=== PATIENT | female | born 1945 | race Caucasian/White ===

== ENCOUNTER → 2016-11-27 | Outpatient (CLI) | payer BC, OTHER ==
--- NOTE | ~2016-11-27 | CNG ---
[facility] [place] [address] CYTO-NONGYN REPORT PROCEDURE Name: HARIS PANDEY [facility] [id number] Admission: 11/27/16 Date of : 47 Discharge: Report #: [id number] Path Case #: [id number] CYTOPATHOLOGY REPORT COLLECTION DATE: 11/27/2016 RECEIVED DATE: 11/27/2016 SUBMITTING PHYS: Dr. Monae Ma OTHER PHYS: CLINICAL HISTORY: Right pleural effusion. SPECIMEN(S) RECEIVED: A.Pleural fluid, Right * * * * * * * * * * * * FINAL DIAGNOSIS: Right pleural fluid: No malignant epithelial cells identified. Reactive mesothelial cells, abundant macrophages, as well as chronic inflammation. COMMENT: Immunohistochemical stains are performed. (Cell block): BerEP4: non-reactive Calretinin: strongly reactive within the mesothelial cells Desmin: strongly reactive within the mesothelial cells, supporting reactive nature TTF-1: non-reactive ER: non-reactive CD68: strongly reactive within the background macrophages Co-review: Dr. Susan Foster. (IUV:csd; d/t: 11/29/2016) PATHOLOGIST: oJdie Rain M.D. REPORT ELECTRONICALLY SIGNED BY: Jodie Rain M.D. DATE/TIME: 11/29/2016 15:02 * * * * * * * * * * * * GROSS PATHOLOGY: A. Pleural fluid, Right: The specimen is submitted unfixed, labeled "Haris Pandey". Received by the Cytology Department is 15 mL of clear yellow fluid out of a total volume of 500 ml. One ThinPrep slide and a cell block were prepared. (clt 11.27.2016) FAMILY MEDICINE CHAIR(S): HALLIE Uriostegui(ASCP) INITIAL CPT CODE(S): [address] [address] CYTO-NONGYN REPORT PROCEDURE Name: HARIS PANDEY Room #: REG CLI Karen.#: [id number] Admission: 11/27/16 Date of : 47 Discharge: Report #: [id number] Path Case #: [id number] A; 82729, 23078, [id number], 08061, 56151, 11566, [id number], 48462 Professional services performed by [facility] at [address], [place] [address] [facility] at [address] [place] [address]., [address], [place] [address]. [address], [address] [place] [address] PHONE: [phone] DIRECTOR: Carlos Simons M.D. * * * END OF REPORT * * *
[2016-11-27 12:39] LABS: CALCIUM 9.2 mg/dL (8.5-10.1); CREATININE 0.8 mg/dL (0.6-1.3); POTASSIUM 4.3 mmol/L (3.5-5.1)
[2016-11-27 12:46] LABS: PROTIME 10.3 Seconds (9.3-11.4)
[2016-11-27 15:01] LABS: BF NUCLEATED CELLS 663; BF RBC 976
[2016-11-27 15:02] LABS: COLOR YELLOW; TOTAL VOLUME 60 mL
[2016-11-27 15:03] LABS: CLARITY SLIGHTLY CLOUDY; MANUAL DIFF YES
[2016-11-27 15:37] LABS: BF MACROPHAGE 41; BF NEUTROPHILS 29
[2016-11-28 10:08] LABS: BODY FLUID AMYLASE 29 U/L (()); BODY FLUID GLUCOSE 93 mg/dL (()); BODY FLUID LDH 188 IU/L (()); BODY FLUID PROTEIN 4.1 g/dL (())
== END | disposition home or self-care (01) ==
LOC: ULTRA 11:57
PROVIDERS: Internal Medicine
DX: J90 Pleural effusion, not elsewhere classified (principal)

== ENCOUNTER → 2016-12-11 | Outpatient (CLI) | payer BC, OTHER ==
--- NOTE | ~2016-12-11 | CNG ---
[facility] [place] [address] CYTO-NONGYN REPORT PROCEDURE Name: HARIS PANDEY Room #: REG [facility].#: [id number] Admission: 12/11/16 Date of : 47 Discharge: Report #: [id number] Path Case #: [id number] CYTOPATHOLOGY REPORT COLLECTION DATE: 12/11/2016 RECEIVED DATE: 12/11/2016 SUBMITTING PHYS: Dr. Merari Jhaveri OTHER PHYS: Dr. Monae Ma CLINICAL HISTORY: Pleural Effusion SPECIMEN(S) RECEIVED: A.Pleural fluid, Right * * * * * * * * * * * * FINAL DIAGNOSIS: Right pleural fluid, ultrasound-guided thoracentesis: ATYPICAL MESOTHELIAL CELLS IDENTIFIED. No definite malignant epithelial cells identified. COMMENT: Examination shows collections of gland-forming epithelioid clusters. Few cells show high nuclear to cytoplasmic ratio. There is not mucin present within any of the cells. There are no intranuclear inclusions identified. Multiple immunohistochemical stains are performed. (Cell block): Calretinin: reactive within most of the epithelioid clusters Desmin: non-reactive within several atypical appearing mesothelial cells WT-1: strong nuclear reactivity identified B72.3 (TAG 72): non-reactive BerEP4: non-reactive Based on the morphology as well as the immunohistochemical stains, the pleural fluid appears to be negative for malignant epithelial cells (with the non-reactive adenocarcinoma markers). The mesothelial cells; however, are atypical and the differential diagnosis includes a reactive process due to recurrent pleural effusions, or a neoplastic process. Please correlate with clinical and radiographic findings. Co-review: Dr. Susan Foster. The findings of this case are discussed with Dr. Gordon Jhaveri at 10:45 a.m., on 12/13/16. (IUV:csd; d/t: 12/13/2016) PATHOLOGIST: Jodie Rain M.D. REPORT ELECTRONICALLY SIGNED BY: Jodie Rain M.D. [address] [address] CYTO-NONGYN REPORT PROCEDURE Name: HARIS PANDEY [facility] [id number] Admission: 12/11/16 Date of : 47 Discharge: Report #: [id number] Path Case #: [id number] DATE/TIME: 12/13/2016 15:31 * * * * * * * * * * * * GROSS PATHOLOGY: A. Pleural fluid, Right: The specimen is submitted unfixed, labeled "Arnaud Haris R". Received by the Cytology Department is 15 mL of clear yellow fluid out of a total volume 400 ml. One ThinPrep slide and a cell block were prepared. (mm .) SUPERVISOR TRUST ACCOUNTS(S): HALLIE Uriostegui(ASCP) INITIAL CPT CODE(S): A; 36176, 06389, 09805, 89174, 36237, 54280, 18553 Professional services performed by [facility] at [facility] [address], [place] [address] Technical services performed by [facility] at [address] [place] [address], [address], [place] [address]. [facility], [address] [place] [address] PHONE: [phone] DIRECTOR: Carlos Simons M.D. * * * END OF REPORT * * *
[2016-12-11 14:41] LABS: BF NUCLEATED CELLS 790; BF RBC 1727
[2016-12-11 14:42] LABS: CLARITY HAZY; COLOR YELLOW; TOTAL VOLUME 60 mL
[2016-12-11 16:20] LABS: MANUAL DIFF YES
[2016-12-13 14:08] LABS: BODY FLUID ALBUMIN 2.9 g/dL (()); BODY FLUID AMYLASE 39 U/L (()); BODY FLUID GLUCOSE 88 mg/dL (()); BODY FLUID LDH 172 IU/L (()); BODY FLUID PROTEIN 4.1 g/dL (())
[2016-12-13 16:20] LABS: BF MACROPHAGE 84; BF NEUTROPHILS 11
== END | disposition home or self-care (01) ==
LOC: ULTRA 12:31
PROVIDERS: Internal Medicine Pulmonary Disease
DX: J90 Pleural effusion, not elsewhere classified (principal)

== ENCOUNTER → 2016-12-25 | Outpatient (CLI) | payer BC, OTHER | LOC: RAD 15:15 | DX: R06.00 Dyspnea, unspecified (principal); M41.84 Other forms of scoliosis, thoracic region ==

== ENCOUNTER → 2016-12-28 | Outpatient (CLI) | payer BC, OTHER ==
[2016-12-28 11:22] LABS: HEMATOCRIT 38.5 % (37.0-47.0); HEMOGLOBIN 13.1 gm/dL (12.0-15.0); MCH 29.9 pg (26.0-34.0); MCHC 33.9 g/dL (28.0-37.0); MCV 88.2 fL (80.0-100.0); RBC 4.37 mil/uL (4.20-5.00); RDW 13.5 % (10.5-14.5); WBC 6.1 thou/uL (4.0-11.0)
[2016-12-28 12:15] LABS: ALBUMIN 3.5 g/dL (3.4-5.0); CALCIUM 8.6 mg/dL (8.5-10.1); CREATININE 0.8 mg/dL (0.6-1.0); POTASSIUM 4.1 mmol/L (3.5-5.1); TOTAL BILIRUBIN 0.4 mg/dL (<0.1-1.0); TOTAL PROTEIN 6.7 g/dL (6.4-8.2)
== END ==
LOC: RAD 10:51
PROVIDERS: Internal Medicine Pulmonary Disease
DX: J90 Pleural effusion, not elsewhere classified (principal)

== ENCOUNTER → 2017-01-04 | Outpatient (CLI) | payer BC ==
--- NOTE | ~2017-01-04 | 2DMMODE ---
[facility] [place] [address] 2 D/M-MODE ECHOCARDIOGRAM Name: HARIS PANDEY Room #: REG [facility]#: [id number] Admission: 01/04/17 Attend Phys: Kevin Del Rio Discharge: Date of : 47 Date of Service: 01/04/17 1113 Report #: [id number] THIS REPORT FOR: //name// APPROVED REPORT Study performed: 01/04/2017 09:09:36 EXAM: Comprehensive 2D, Doppler, and color-flow Echocardiogram Patient Location: Out-Patient Blood Pressure: 120/70 mmHg HR: 74 bpm Rhythm: NSR Other Information Study Quality: Adequate Technically limited study due to breast implants. Indications Pulmonary Hypertension Hx: Recurring pleural effusions 2D Dimensions RVDd: 27.03 mm LVEF(%): 56.22 (>50%) IVSd: 10.84 (7-11mm) LVOT Diam: 19.80 (18-24mm) LVDd: 41.65 mm PWd: 8.45 (7-11mm) Ascending Ao: 33.10 (22-36mm) LVDs: 29.55 (25-40mm) Aortic Root: 32.03 mm Inman's LVEF: 56.22 % Volumes Left Atrial Volume (Systole) Single Plane 4CH: 29.26 mL Single Plane 2CH: 38.59 mL LA ESV Index: 20.00 mL/m2 LV Strain GL Strain(%): 0.00 Aortic Valve AoV Peak Abrahan.: 1.21 m/s AO Peak Gr.: 5.87 mmHg LVOT Max P.01 mmHg [facility] [address] [place] [address] 2 D/M-MODE ECHOCARDIOGRAM Name: JIMMYYUEHARIS Keila Room #: REG [facility]#: [id number] Admission: 01/04/17 Attend Phys: Kevin Del Rio Discharge: Date of : 47 Date of Service: 01/04/17 1113 Report #: [id number] LVOT Max V: 0.71 m/s AI Vmax: 5.04 m/s AI Bossier: 3.08 m/s2 AI PHT: 474.52 ms Mitral Valve E/A Ratio: 1.1 MV Decel. Time: 221.69 ms MV E Max Abrahan.: 0.66 m/s MV A Abrahan.: 0.58 m/s MV PHT: 64.29 ms Pulmonary Valve PV Peak Abrahan.: 0.60 m/s PV Peak Gr.: 1.46 mmHg Pulmonary Vein P Vein S: 72.2 m/s P Vein D: 51.0 m/s P Vein A Dur.: 30.9 m/s Tricuspid Valve TR Peak Abrahan.: 2.14 m/s RAP Estimate: 5.00 mmHg TR Peak Gr.: 18.29 mmHg RVSP: 23.00 mmHg Left Ventricle The left ventricle is normal size. There is normal LV segmental wall motion. There is normal left ventricular wall thickness. The left ventricular systolic function is normal. LVEF is 55-60%. Grade II - pseudonormal filling dynamics. Right Ventricle The right ventricle is normal size. The right ventricular systolic function is normal. Atria The left atrium size is normal. The right atrium size is normal. Aortic Valve The aortic valve is normal in structure. Mild aortic regurgitation. There is no aortic valvular stenosis. Mitral Valve The mitral valve is normal in structure. Mild mitral regurgitation. Tricuspid Valve [facility] [address] [place] [address] 2 D/M-MODE ECHOCARDIOGRAM Name: HARIS PANDEY Room #: REG [facility]#: [id number] Admission: 01/04/17 Attend Phys: Kevin De lRio Discharge: Date of : 47 Date of Service: 01/04/17 1113 Report #: [id number] The tricuspid valve is normal in structure. There is mild tricuspid regurgitation. The right atrial pressure is estimated at 5 mmHg. Estimated PAP is 23mmHg. Pulmonic Valve The pulmonary valve is normal in structure. There is no pulmonic valvular regurgitation. Great Vessels The aortic root is normal in size. The ascending aorta is normal in size. IVC is normal in size and collapses >50% with inspiration. Pericardium There is no pericardial effusion. Right pleural effusion noted. <Conclusion> The left ventricular systolic function is normal. There is normal LV segmental wall motion. LVEF is 55-60%. The aortic valve is normal in structure. Mild aortic regurgitation, no stenosis. The mitral valve is normal in structure. Mild mitral regurgitation. Pulmonary artery pressure of 25mmHg There is no pericardial effusion. <ELECTRONICALLY SIGNED> By: Timothy Gimenez MD, [facility] 01/04/17 1113 1113 111 Timothy Gimenez MD, FACC /INF
== END ==
LOC: CV 09:35
DX: I27.2 Other secondary pulmonary hypertension (principal); R91.8 Other nonspecific abnormal finding of lung field

== ENCOUNTER → 2017-01-14 | Outpatient (CLI) | payer BC, OTHER | LOC: RAD 10:50 | DX: J90 Pleural effusion, not elsewhere classified (principal) ==

== ENCOUNTER → 2017-02-27 | Outpatient (CLI) | payer BC, OTHER | LOC: RAD 15:54 | DX: J90 Pleural effusion, not elsewhere classified (principal) ==

== ENCOUNTER → 2017-03-04 | Outpatient (CLI) | payer BC, OTHER | LOC: RAD 16:26 | DX: J90 Pleural effusion, not elsewhere classified (principal) ==

== ENCOUNTER 2017-05-21 09:26 | Inpatient (IN) | payer BC, OTHER ==
[2017-05-20 10:11] LABS: URINE BILIRUBIN NEGATIVE (Negative); URINE BLOOD TRACE (Negative); URINE COLOR YELLOW; URINE GLUCOSE-RANDOM* NEGATIVE (Negative); URINE KETONES NEGATIVE (Negative); URINE NITRITE NEGATIVE (Negative); URINE PROTEIN (DIPSTICK) NEGATIVE (Negative); URINE SPECIFIC GRAVITY <= 1.005 (1.003-1.035); URINE UROBILINOGEN 0.2 E.U./dl (0.2-1.0)
[2017-05-20 10:13] LABS: HEMATOCRIT 39.1 % (37.0-47.0); HEMOGLOBIN 13.2 gm/dL (12.0-15.0); MCH 29.4 pg (26.0-34.0); MCHC 33.7 g/dL (28.0-37.0); MCV 87.1 fL (80.0-100.0); RBC 4.49 mil/uL (4.20-5.00); RDW 13.2 % (10.5-14.5); WBC 5.6 thou/uL (4.0-11.0)
[2017-05-20 10:26] LABS: APTT 31.5 Seconds (24.5-32.8); PROTIME 10.3 Seconds (9.3-11.4)
[2017-05-20 10:29] LABS: ALBUMIN 4.2 g/dL (3.4-5.0); CREATININE 0.8 mg/dL (0.6-1.0); POTASSIUM 4.2 mmol/L (3.5-5.1); TOTAL BILIRUBIN 0.7 mg/dL (<0.1-1.0); TOTAL PROTEIN 7.5 g/dL (6.4-8.2)
[~2017-05-21] VITALS: Ht 177.8 cm; Wt 72.6 kg
--- NOTE | ~2017-05-21 | S ---
[facility] [place] [facility] [address] [place] [address] SURGICAL PATH RPT PROCEDURE Name: HARIS PANDEY Room #: 216-P ADM IN M.R.#: [id number] Admission: 05/22/17 Date of : 47 Discharge: Report #: [id number] Path Case #: [id number] PATHOLOGY REPORT DRAFT COLLECTION DATE: 05/22/2017 RECEIVED DATE: 05/23/2017 SPECIMEN(S) RECEIVED: A.Right parietal pleura-frozen section B.Right parietal pleura
--- NOTE | ~2017-05-21 | EKG ---
[place] [address] [facility] [place] [address] ELECTROCARDIOGRAM REPORT Name: HARIS PANDEY Room #: PRE IN ..#: [id number] Admission: Attend Phys: Senthil Carrillo Discharge: Date of : 47 Report #: [id number] THIS REPORT FOR: //name// [facility] Test Date: 2017-05-20 Test Time: 10:16:26 Pat Name: HARIS MARQUEZYUE Department: Room: Gender: F Machine [employer]: [place] : 1945 Requested By: Senthil Carrillo Order Number: [id number] MD: Timothy Gimenez Measurements Intervals [place] Rate: 83 P: 31 VT: 126 QRS: 53 QRSD: 85 T: 30 QT: 388 QTc: 456 Interpretive Statements Incomplete analysis due to missing data in precordial lead(s) Sinus rhythm Missing lead(s): V6 No previous ECG available for comparison Electronically Signed On 05-20-2017 16:34:22 CDT by Timothy Gimenez [email or web address] <ELECTRONICALLY SIGNED> By: Timothy Gimenez MD, [facility] 05/20/17 1634 1016 1016 Timothy Gimenez MD, FAC /EPI
--- NOTE | ~2017-05-21 | CNG ---
[facility] [place] [address] CYTO-NONGYN REPORT PROCEDURE Name: HARIS PANDEY Room #: 216-P DIS IN M.R.#: [id number] Admission: 05/22/17 Date of : 47 Discharge: 05/24/17 Report #: [id number] Path Case #: [id number] CYTOPATHOLOGY REPORT COLLECTION DATE: 05/23/2017 RECEIVED DATE: 05/23/2017 SUBMITTING PHYS: Dr. Senthil Carrillo M.D. OTHER PHYS: CLINICAL HISTORY: Right pleural effusion, [id number] pleural biopsies pending IHC stains at the time of this report (see separate report to follow). SPECIMEN(S) RECEIVED: A.Pleural fluid, Right * * * * * * * * * * * * FINAL DIAGNOSIS: A. Right Pleural fluid: - No malignant epithelial cells identified. The specimen is predominantly comprised of lymphocytes and rare mesothelial cells. PATHOLOGIST: Jodie Rain M.D. REPORT ELECTRONICALLY SIGNED BY: Jodie Rain M.D. DATE/TIME: 05/24/2017 13:23 * * * * * * * * * * * * GROSS PATHOLOGY: A. Pleural fluid, Right: The specimen is submitted unfixed, labeled "Haris Pandey". Received by the Cytology Department is 15 mL of cloudy red fluid. One ThinPrep slide and a formalin fixed cell block was prepared. (mm 05.23.2017) WET END OPERATOR(S): HALLIE Uriostegui(ASCP) INITIAL CPT CODE(S): A; 68554, 71918 Professional services performed by [facility] at [facility] [address], [place] [address] Technical services performed by [facility] at [address] [place] [address]., [address], [place] [address]. [facility] [address] [place] [address], [address] [place] [address] [facility] [address] [place] [address] CYTO-NONGYN REPORT PROCEDURE Name: HARIS PANDEY Room #: 216-P DIS IN M.R.#: [id number] Admission: 05/22/17 Date of : 47 Discharge: 05/24/17 Report #: [id number] Path Case #: [id number] PHONE: [phone] DIRECTOR: Carlos Simons M.D. * * * END OF REPORT * * *
[~2017-05-21 09:26] MED LIST: ALLER-TEC D 5-1 EACH PO; BIOTIN10000 MC1 PO; ESTRADIOL TRAN1 EAC2 TOP; VITAMIN B-121000 MCG PO; VITAMIN D31000 UNIT PO
[2017-05-22 10:56] VITALS: BP 148/82
[2017-05-22 20:35] VITALS: BP 172/111
[2017-05-22 23:00] VITALS: BP 133/71
[2017-05-23] VITALS (7 sets, daily range): BP systolic 102–138; BP diastolic 48–68
[2017-05-23 01:11] LABS: BODY FLUID GLUCOSE 50 mg/dL (()); BODY FLUID LDH 330 IU/L (()); BODY FLUID PROTEIN 3.3 g/dL (())
[2017-05-23 04:32] LABS: HEMOGLOBIN 11.7 gm/dL (12.0-15.0); MCH 29.4 pg (26.0-34.0); MCHC 34.4 g/dL (28.0-37.0); MCV 85.4 fL (80.0-100.0); RBC 3.98 mil/uL (4.20-5.00); RDW 13.1 % (10.5-14.5); WBC 9.1 thou/uL (4.0-11.0)
[2017-05-23 05:02] LABS: CALCIUM 8.5 mg/dL (8.5-10.1); CREATININE 0.8 mg/dL (0.6-1.0); POTASSIUM 4.4 mmol/L (3.5-5.1)
[2017-05-23] MEDS ORDERED: NORCO 5-325 TA1 EACH PO (10:39)
[2017-05-24 03:44] VITALS: BP 116/60
[2017-05-24 04:32] LABS: ABSOLUTE NEUTROPHILS 4.1 thou/uL (1.4-8.2); BASOPHILS 0.5 % (0.0-2.0); EOSINOPHILS 0.9 % (0.0-3.0); HEMATOCRIT 32.5 % (37.0-47.0); LYMPHOCYTES 29.2 % (24.0-44.0); MCH 29.2 pg (26.0-34.0); MCHC 33.9 g/dL (28.0-37.0); MCV 86.3 fL (80.0-100.0); MONOCYTES 10.1 % (1.0-8.0); PLATELET COUNT 220 thou/uL (150-400); POLYS 59.3 % (36.0-66.0); RBC 3.77 mil/uL (4.20-5.00); RDW 13.5 % (10.5-14.5)
[2017-05-24 05:02] LABS: MANUAL DIFF NO
[2017-05-24 07:30] VITALS: BP 119/49
[2017-05-24 11:25] VITALS: BP 138/73
[2017-05-24 12:30] VITALS: BP 133/66
== END 2017-05-24 13:12 | disposition home or self-care (01) | DRG 168 ==
LOC: PRE 09:26 → TBA 05-22 05:31 → 2N 05-22 05:31 → PRE 05-22 11:32 → 2N 05-22 15:53 → ENTRNSPT 05-24 12:46 → EDTRNSPTSTS 05-24 12:48 → 2N 05-24 13:12
PROVIDERS: Internal Medicine Pulmonary Disease; Nurse Practitioner; Thoracic Surgery (Cardiothoracic Vascular Surgery)
PROC: 0BBN3ZX Excision of Right Pleura, Percutaneous Approach, Diagnostic (ICD-10-PCS; principal; 2017-05-22)
PROC: 0W994ZZ Drainage of Right Pleural Cavity, Percutaneous Endoscopic Approach (ICD-10-PCS; principal; 2017-05-22)
DX: J90 Pleural effusion, not elsewhere classified (principal); G89.29 Other chronic pain; M54.9 Dorsalgia, unspecified; M54.2 Cervicalgia; K21.9 Gastro-esophageal reflux disease without esophagitis; Z88.6 Allergy status to analgesic agent; Z82.49 Family history of ischemic heart disease and other diseases of the circulatory system; Z90.710 Acquired absence of both cervix and uterus; Z87.891 Personal history of nicotine dependence
CPT/HCPCS: 10081; 50010; 50101; 50249; 50386; 50417; 50455; 50497; 50558; 51687; 52265; 52266; 54118; 56519; 56524; 56525; 56526; 56528; 62110; 62900; 65020; 65040; 65105; 70005

== ENCOUNTER → 2017-06-13 | Outpatient (CLI) | payer BC, OTHER ==
[~2017-06-13] MED LIST changes: +NORCO 5-325 TA1 EACH PO
== END ==
LOC: RAD 06-10 11:07
DX: J90 Pleural effusion, not elsewhere classified (principal)

== ENCOUNTER → 2017-08-12 | Outpatient (CLI) | payer BC, OTHER ==
[2017-08-12 09:01] LABS: CREATININE 0.7 mg/dL (0.6-1.0)
== END ==
LOC: CAT 08:20
PROVIDERS: Internal Medicine Pulmonary Disease
DX: R91.1 Solitary pulmonary nodule (principal); J92.9 Pleural plaque without asbestos; Z90.13 Acquired absence of bilateral breasts and nipples

== ENCOUNTER → 2017-09-04 | Outpatient (CLI) | payer BC, OTHER | LOC: RAD 13:06 | DX: J98.6 Disorders of diaphragm (principal); J90 Pleural effusion, not elsewhere classified; M41.84 Other forms of scoliosis, thoracic region ==

== ENCOUNTER → 2017-09-27 | Outpatient (CLI) | payer BC ==
[~2017-09-27] MED LIST changes: +PHENERGAN12.5 M2 RECTAL
== END ==
LOC: PET 09:50
DX: C34.91 Malignant neoplasm of unspecified part of right bronchus or lung (principal); R22.2 Localized swelling, mass and lump, trunk; J98.11 Atelectasis; Z98.890 Other specified postprocedural states

== ENCOUNTER → 2017-10-07 | Outpatient (CLI) | payer BC ==
[2017-10-07 10:36] LABS: CREATININE 0.8 mg/dL (0.6-1.0)
== END ==
LOC: MRI 09:24
DX: Z01.812 Encounter for preprocedural laboratory examination (principal); J90 Pleural effusion, not elsewhere classified; J92.9 Pleural plaque without asbestos; C34.90 Malignant neoplasm of unspecified part of unspecified bronchus or lung; Z77.090 Contact with and (suspected) exposure to asbestos

== ENCOUNTER → 2017-11-28 | Outpatient (CLI) | payer BC ==
--- NOTE | ~2017-11-28 | TST ---
[facility] [address] [place] [address] TREADMILL STRESS TEST Name: HARIS PANDEY Keila Room #: REG [facility]#: [id number] Admission: 11/28/17 Attend Phys: Kevin Del Rio Discharge: Date of : 47 Date of Service: 12/04/17 1003 Report #: [id number] THIS REPORT FOR: //name// APPROVED REPORT Patient Location: Patent Legal Assistant Holding Room #: Stress Nurse: Vidhi Jacobo RN Procedure: Regular Jesus protocol exercise treadmill study Indications: 72-year-old female patient with coronary risk factors undergoing mesothelioma surgery. This is a preop risk assessment study. Brief description of procedure: After informed consent was obtained the patient underwent regular Jesus protocol exercise treadmill study exercising total of 6 minutes 0 seconds. Resting heart rate of 94 beats per minutes and blood pressure of 152/87 was noted. Maximal heart rate achieved was 148 bpm which is 99% of predicted maximal heart rate. The patient achieved 7.0 metastases. Maximum systolic blood pressure was 218 mmHg and the study was stopped secondary to dyspnea fatigue and hypertensive blood pressure response. Symptomatically the patient had no chest pain pressure tightness or heaviness but did have some dyspnea on exertion. Conclusion 1. Subjectively negative for ischemia 2. Elective cardiographic Shaheed negative for ischemia 3. Reduced functional capacity <ELECTRONICALLY SIGNED> By: Keyshawn Tiwari MD 12/04/17 1003 02 Keyshawn Tiwari MD /INF
[2017-11-28 09:35] LABS: CREATININE 0.8 mg/dL (0.6-1.0)
== END ==
LOC: MRI 06:56
PROVIDERS: Internal Medicine Pulmonary Disease
DX: Z01.818 Encounter for other preprocedural examination (principal); C45.7 Mesothelioma of other sites; I26.99 Other pulmonary embolism without acute cor pulmonale; J90 Pleural effusion, not elsewhere classified

== ENCOUNTER → 2018-02-21 | Outpatient (CLI) | payer BC, OTHER ==
[~2018-02-21] MED LIST changes: -PHENERGAN12.5 M2 RECTAL
== END ==
LOC: RAD 11:31
DX: R06.00 Dyspnea, unspecified (principal); R06.02 Shortness of breath

== ENCOUNTER 2018-03-06 15:03 | Emergency (ER) | payer BC, OTHER ==
[~2018-03-06] VITALS: Ht 175.3 cm; Wt 61.2 kg
--- NOTE | ~2018-03-06 | EKG ---
[place] [address] [place] [address] ELECTROCARDIOGRAM REPORT Name: HARIS PANDEY Room #: [facility]#: [id number] Admission: 03/06/18 Attend Phys: Discharge: 03/06/18 Date of : 47 Report #: [id number] THIS REPORT FOR: //name// [facility] ED Test Date: 2018-03-06 Test Time: 15:33:21 Pat Name: HARIS PANDEY Department: Room: Gender: F [employer]: [place] : 1945 Requested By: Patience Ramirez Order Number: [id number] MD: Timothy Gimenez Measurements Intervals [place] Rate: 92 P: 49 MA: 114 QRS: 64 QRSD: 89 T: -25 QT: 368 QTc: 456 Interpretive Statements Sinus rhythm Borderline short MA interval Nonspecific ST and T wave abnormality Compared to ECG 05/20/2017 10:16:26 T-wave abnormality now present Electronically Signed On 03-07-2018 7:34:06 CDT by Timothy Gimenez [email or web address] <ELECTRONICALLY SIGNED> By: Timothy Gimenez MD, [facility] 03/07/18 0734 32 32 Timothy Gimenez MD, [facility] /EPI
[2018-03-06 15:40] LABS: ABSOLUTE NEUTROPHILS 5.4 thou/uL (1.4-8.2); BASOPHILS 0.9 % (0.0-2.0); EOSINOPHILS 0.7 % (0.0-3.0); HEMATOCRIT 30.5 % (37.0-47.0); HEMOGLOBIN 10.8 gm/dL (12.0-15.0); LYMPHOCYTES 11.7 % (24.0-44.0); MCH 29.1 pg (26.0-34.0); MCHC 35.2 g/dL (28.0-37.0); MCV 82.6 fL (80.0-100.0); MONOCYTES 10.4 % (1.0-8.0); PLATELET COUNT 321 thou/uL (150-400); POLYS 76.3 % (36.0-66.0); RBC 3.69 mil/uL (4.20-5.00); RDW 14.7 % (10.5-14.5)
[2018-03-06 15:48] LABS: ANION GAP 10 mmol/L (7-16); BUN 15 mg/dL (7-18); CALCIUM 9.8 mg/dL (8.5-10.1); CHLORIDE 98 mmol/L (98-107); CO2 29 mmol/L (21-32); CREATININE 0.8 mg/dL (0.6-1.0); GLUCOSE 109 mg/dL (74-106); POTASSIUM 3.1 mmol/L (3.5-5.1); SODIUM 137 mmol/L (136-145)
[2018-03-06 15:57] LABS: ALBUMIN 3.7 g/dL (3.4-5.0); LIPASE 87 U/L (73-393); SGOT 18 U/L (15-37); SGPT 14 U/L (30-65); TOTAL BILIRUBIN 0.7 mg/dL (<0.1-1.0); TOTAL PROTEIN 7.9 g/dL (6.4-8.2); TROPONIN-I <0.06 ng/mL (<0.06)
[2018-03-06 17:39] LABS: URINE BILIRUBIN NEGATIVE (Negative); URINE BLOOD NEGATIVE (Negative); URINE CLARITY CLEAR; URINE COLOR YELLOW; URINE GLUCOSE-RANDOM* NEGATIVE (Negative); URINE KETONES 2+ (Negative); URINE LEUKOCYTES-REFLEX NEGATIVE (Negative); URINE NITRITE-REFLEX NEGATIVE (Negative); URINE PROTEIN (DIPSTICK) NEGATIVE (Negative); URINE SPECIFIC GRAVITY 1.015 (1.005-1.035); URINE UROBILINOGEN 0.2 E.U./dl (0.2-1.0)
[2018-03-06] MEDS ORDERED: PHENERGAN12.5 M2 RECTAL (18:08)
== END 2018-03-06 18:36 | disposition home or self-care (01) ==
LOC: ER 15:03
PROVIDERS: Nurse Practitioner Family
DX: E83.42 Hypomagnesemia (principal); E87.6 Hypokalemia; C45.0 Mesothelioma of pleura; M79.602 Pain in left arm; G89.29 Other chronic pain; M54.5 Low back pain; M54.2 Cervicalgia; K21.9 Gastro-esophageal reflux disease without esophagitis; Z90.710 Acquired absence of both cervix and uterus; Z90.13 Acquired absence of bilateral breasts and nipples; Z87.891 Personal history of nicotine dependence; Z88.5 Allergy status to narcotic agent; Z88.8 Allergy status to other drugs, medicaments and biological substances

== ENCOUNTER → 2018-03-17 | Outpatient (CLI) | payer BC, OTHER ==
[~2018-03-17] MED LIST changes: +PHENERGAN12.5 M2 RECTAL
== END ==
LOC: RAD 10:25
DX: J94.2 Hemothorax (principal); M41.84 Other forms of scoliosis, thoracic region